=== PATIENT | male | born 1980 | race Caucasian/White ===

== ENCOUNTER 2022-08-13 21:03 | Emergency (ER) | payer BC, SELFPAY ==
[2022-08-13 21:09] VITALS: BP 161/87; PULSE 88; RESP 16; TEMP 37.4; O2SAT 98; BMI 25.8
--- NOTE | 2022-08-13 21:16 | ED_ITS ---
HPI - Extremity Injury (Lower) General Chief Complaint: Extremity Injury, Lower Stated Complaint: KNEE PAIN Time Seen by Provider: 08/13/22 21:08 Source: patient Mode of arrival: walk-in Limitations: no limitations History of Present Illness HPI Narrative: right knee pain for one month. Increased pain over the past week. Not able to recall any injury. Points to the lateral side of the knee as the site of pain. no associated numbness or weakness. No fever Related Data Home Medications Medication Instructions Recorded Confirmed No Known Home Medications 08/13/22 08/13/22 Allergies Allergy/AdvReac Type Severity Reaction Status Date / Time No Known Drug Allergies Allergy Verified 08/13/22 21:11 Review of Systems ROS Status of ROS 10 or more systems reviewed and unremarkable except as noted in history and below [facility] Social History Smoking status: Current every day smoker Exam Constitutional Vital Signs - 24 hr 08/13/22 21:09 Temperature 99.3 F Pulse Rate [Monitor] 88 Respiratory Rate 16 Blood Pressure [Right Arm] 161/87 H Pulse Oximetry 98 Oxygen Delivery Method Room Air Common normals: no apparent distress, average body habitus, oriented x3, no limitations and healthy appearing HENMO Common normals: normocephalic and head/scalp atraumatic Eye Common normals: PERRL, EOMs intact bilaterally, conjunctivae normal and no scleral icterus Respiratory Common normals: normal respiratory effort, no retractions, no use of accessory muscles and clear to auscultation bilaterally Cardio Common normals: regular rate, regular rhythm, S1 normal heart sound and S2 normal heart sound GI Common normals: Normal to inspection, nondistended, normoactive bowel sounds present and non-tender Extremity Other: right knee without swelling. mild tenderness lat. aspect right knee. No calf tenderness or swelling Neuro Common normals: oriented x3, CN's II-XII intact bilaterally, moves all extremities and no focal motor deficits Psych Appearance: grossly normal Course Vital Signs Vital signs: Vital Signs Temperature 99.3 F 08/13/22 21:09 Pulse Rate 88 08/13/22 21:09 Respiratory Rate 16 08/13/22 21:09 Blood Pressure 161/87 H 08/13/22 21:09 Pulse Oximetry 98 08/13/22 21:09 Oxygen Delivery Method Room Air 08/13/22 21:09 Temperature 99.3 F 08/13/22 21:09 Pulse Rate 88 08/13/22 21:09 Respiratory Rate 16 08/13/22 21:09 Blood Pressure 161/87 H 08/13/22 21:09 Pulse Oximetry 98 08/13/22 21:09 Oxygen Delivery Method Room Air 08/13/22 21:09 MDM - Extremity Injury (Lower) MDM Narrative Medical decision making narrative: patient presents complaining of right knee pain for one month. No injury. has tenderness of lat. knee joint. xray and labs unremarkable. Patient treated with dose of prednisone and discharged home with diagnosis of acute arthralgia right knee Discharge Plan Discharge Chief Complaint: Extremity Injury, Lower Clinical Impression: Arthralgia of right knee Patient Disposition: Home, Self-Care Prescriptions / Home Meds: No Action No Known Home Medications Instructions: Arthralgia (ED) Additional Instructions: follow up with your family doctor next week Stand Alone Forms: Portal Instructions Referrals: Physician,Non-Staff, MD [Primary Care Provider] - 1 week
--- NOTE | 2022-08-13 21:25 | XR_ITS ---
[address] [address] Patient Name: ADDIS LEON II MRN: [id number] date: 1980 Sex: M Assigned Patient Location: ER Current Patient Location: ER Accession/Order Number: [id number] Exam Date: 08/13/2022 21:25 Report Date: 08/13/2022 22:10 At the request of: MABEL MIDDLETON Procedure: XR knee RT 3V EXAM: XR knee RT 3V HISTORY: Knee pain COMPARISON: None. TECHNIQUE: 3 views FINDINGS: No osseous lesion, fracture, dislocation or subluxation. Joint spaces are normal. No visualized effusion. No visualized soft tissue edema. IMPRESSION: Normal x-rays Electronically authenticated by: ARNULFO MORENO Date: 08/13/2022 22:10
[2022-08-13 21:48] LABS: Basophils Absolute Auto 0.1 10^3/uL (0.0-0.1); Basophils Percent Auto 0.9 % (0.2-2.0); Eosinophils Absolute Auto 0.5 10^3/uL (0.0-0.7); Eosinophils Percent Auto 5.1 % (0.9-7.0); Hematocrit 47.4 % (42.0-54.0); Hemoglobin 16.7 g/dL (14.0-18.0); Immature Granulocytes Abs Auto 0.04 10^3/uL (0.00-0.03); Immature Granulocytes Pct Auto 0.4 % (0.0-0.5); Lymphocytes Absolute Auto 2.3 10^3/uL (1.2-3.8); Lymphocytes Percent Auto 21.6 % (20.5-60.0); Mean Corpuscular HGB Conc 35.2 g/dL (29.9-35.2); Mean Corpuscular Hemoglobin 31.7 pg (25.9-34.0); Mean Corpuscular Volume 89.9 fL (80.0-94.0); Mean Platelet Volume 9.1 fL (9.5-13.5); Monocytes Absolute Auto 1.1 10^3/uL (0.3-0.8); Monocytes Percent Auto 10.4 % (1.7-12.0); Neutrophils Absolute Auto 6.5 10^3/uL (1.4-6.5); Neutrophils Percent Auto 61.6 % (43.0-75.0); Platelet Count 265 10^3/uL (150-450); Red Blood Count 5.27 10^6/uL (4.70-6.10); White Blood Count 10.5 10^3/uL (4.0-11.0)
[2022-08-13 22:02] LABS: D Dimer 0.33 mg/L FEU (<=0.59)
[2022-08-13 22:11] LABS: Anion Gap 9.6; Carbon Dioxide 31.2 mmol/L (21.0-32.0); Chloride 105 mmol/L (98-107); Estimated GFR (African America >60 (>=60); Estimated GFR (Non-African Ame >60 (>=60); Glucose 103 mg/dL (74-106); Potassium 4.8 mmol/L (3.5-5.1); Sodium 141 mmol/L (136-145)
[2022-08-13] MEDS: PREDNISONE 20 MG TABLET 40 MG PO (23:11)
== END 2022-08-13 23:15 | disposition home or self-care (01) ==
PROVIDERS: Emergency Provider Internal Medicine
DX: M25.561 Pain in right knee (principal); F17.210 Nicotine dependence, cigarettes, uncomplicated
CPT/HCPCS: 36415; 73562; 80048; 85025; 85378; 99284

== ENCOUNTER 2023-01-29 12:38 | Emergency (ER) | payer BC, SELFPAY ==
[2023-01-29 12:49] VITALS: BP 154/100; PULSE 68; RESP 16; TEMP 36.6; O2SAT 98; BMI 31.4
--- NOTE | 2023-01-29 13:01 | PC.NURSE ---
COVID swab obtained
[2023-01-29] MEDS: METHYLPREDNISOLONE SOD SUCC PF 125 MG/2 ML VIAL IVP (13:21)
[2023-01-29] MEDS: ONDANSETRON PF 4 MG/2 ML VIAL IV (13:21)
[2023-01-29] MEDS: KETOROLAC TROMETHAMINE 30 MG/ML VIAL IVP (13:21)
[2023-01-29 13:22] LABS: SARS-CoV-2 Ag NEGATIVE (NEGATIVE)
--- NOTE | 2023-01-29 14:02 | ED.GENADUL1 ---
HPI - General Adult General Chief complaint: Headache Stated complaint: HEADACHE Time Seen by Provider: 01/29/23 12:49 Source: patient Mode of arrival: walk-in History of Present Illness HPI narrative: Patient presents with frontal headache typical of prior migraines. He has some photophobia but no nausea or vomiting. No neck pain or change in vision. He also told me that about a week ago he developed right sided sinus pressure and had a day of drainage - now just the pressure and sensation of right sinus fullness. No fever or cough. He took Aleve about 3-4 hours prior to arrival without much change. His PCP had also prescribed Qulipta for his headache/migraine but he said it didn't help. No reason trauma to the head or neck. No neuro deficits. Related Data Previous Rx's Medication Instructions Recorded azithromycin 250 mg tablet See Rx Instructions PO .COMPLEX #6 01/29/23 tabs cetirizine 5 mg-pseudoephedrine ER 1 tab PO Q12H PRN sinus symptoms 01/29/23 120 mg tablet,extended #14 tabs release,12hr (Zyrtec-D) Allergies Allergy/AdvReac Type Severity Reaction Status Date / Time No Known Drug Allergies Allergy Verified 08/13/22 21:11 PFSH PFSH Social History Smoking status: Current every day smoker Exam Narrative Exam Narrative: Nurses notes and vital signs reviewed and patient is not hypoxic. afebrile General: Well-appearing and in no apparent distress. Skin: Warm, dry, no pallor noted. No rash. Head: Normocephalic, atraumatic. right maxillary and right frontal sinus tenderness Neck: Supple, non-tender. No meningismus. No cervical lymphadenopathy. Eye: Pupils are equal, round and EOMI. No scleral icterus. Ears, Nose, Mouth, and Throat: TM are clear, no posterior oropharynx erythema, uvula is mid-line. Oral mucosa is moist. Small amount of nasal mucosal hypertrophy noted. Cardiovascular: Regular Rate and Rhythm without murmur, gallop or rub. Respiratory: No accessory muscle use or respiratory distress. Lungs are clear to auscultation, no wheezing, rales or rhonchi Neurological: A&O x4. No cranial nerve dysfunction observed. No truncal ataxia. Moves all extremities. Sensation intact. Psychiatric: Cooperative and interactive. Normal mood and affect. Constitutional Vital Signs, click to edit/add: Last Vital Signs Temp 97.8 F 01/29/23 12:49 Pulse 68 01/29/23 12:49 Resp 16 01/29/23 12:49 BP 154/100 H 01/29/23 12:49 Pulse Ox 98 01/29/23 12:49 O2 Del Method Room Air 01/29/23 13:02 Course Vital Signs Vital signs: Vital Signs Temperature 97.8 F 01/29/23 12:49 Pulse Rate 68 01/29/23 12:49 Respiratory Rate 16 01/29/23 12:49 Blood Pressure 154/100 H 01/29/23 12:49 Pulse Oximetry 98 01/29/23 12:49 Oxygen Delivery Method Room Air 01/29/23 12:49 Temperature 97.8 F 01/29/23 12:49 Pulse Rate 68 01/29/23 12:49 Respiratory Rate 16 01/29/23 12:49 Blood Pressure 154/100 H 01/29/23 12:49 Pulse Oximetry 98 01/29/23 12:49 Oxygen Delivery Method Room Air 01/29/23 13:02 Medical Decision Making MDM Narrative Medical decision making narrative: Peripheral IV established blood drawn and sent for testing. The patient has exam findings and symptoms consistent with some right-sided sinusitis but he also has classic symptoms suggestive of migraine. He was given IV Toradol, IV Solu-Medrol and IV Benadryl. On recheck his headache had decreased from 8/10 to a 2/10 and he was ready for discharge. I prescribed a short course of doxycycline for him as well as Zyrtec-D to help with his sinus symptoms. Lab Data Labs: Lab Results 01/29/23 Range/Units 12:57 SARS-CoV-2 (PCR) Negative (NEGATIVE) SARS-CoV-2 RNA (LOVE) Not detected (NOT DETECTE) Discharge Plan Discharge Chief Complaint: Headache Clinical Impression: Migraine, Sinusitis Patient Disposition: Home, Self-Care Time of Disposition Decision: 14:03 Prescriptions / Home Meds: New azithromycin 250 mg tablet See Rx Instructions .ROUTE .COMPLEX Qty: 6 0RF Rx Instructions: For 250 mg dose pack: take 500 mg today (day 1), then 250 mg for 4 days (days 2-5) cetirizine-pseudoephedrine [Zyrtec-D] 5-120 mg tablet extended release 12 hr 1 tab PO Q12H PRN (Reason: sinus symptoms) Qty: 14 0RF Instructions: Sinusitis (ED), Migraine Headache (ED) Stand Alone Forms: Portal Instructions Referrals: RADHA BAEZA [Primary Care Provider] - 1 week Discharge Date/Time: 01/29/23 14:27
[2023-01-29 15:56] LABS: SARS-CoV-2 NAA NOT DETECTED (NOT DETECTE)
== END 2023-01-29 14:27 | disposition home or self-care (01) ==
PROVIDERS: Emergency Provider Emergency Medicine; PCP Family Medicine
DX: G43.909 Migraine, unspecified, not intractable, without status migrainosus (principal); J32.9 Chronic sinusitis, unspecified; F17.210 Nicotine dependence, cigarettes, uncomplicated; Z20.822 Contact with and (suspected) exposure to COVID-19
CPT/HCPCS: 87635; 87811; 96374; 96375; 99284; J2930